=== PATIENT | female | born 1960 | race Caucasian/White ===

== ENCOUNTER → 2016-10-23 | Day surgery (SDC) | payer OTHER ==
[~2016-10-23] MED LIST: ESTRGEL TOP; ONABOTULINUMTOXINA INJ 100 UNITS/VIAL ONE; PROPOFOL 200 MG/20 ML AMP IV ONE; PROV10TA PO; SODIUM CHLORIDE 0.9% INJ 10 ML ONE; TAB-TAB PO; ZOLP10TA3 PO
== END | disposition home or self-care (01) ==
LOC: ESDC 12:07
PROVIDERS: ATTEND Internal Medicine Gastroenterology
DX: R10.13 Epigastric pain (principal); K31.84 Gastroparesis
CPT/HCPCS: 00740; 43236; J0585; J3010